=== PATIENT | male | born 1965 | race Caucasian/White ===

== ENCOUNTER 2023-11-10 12:11 | Emergency (ER) | payer BC, SELFPAY ==
[2023-11-10 12:12] VITALS: BP 182/95; PULSE 62; RESP 16; TEMP 36.8; O2SAT 97; BMI 29.0
--- NOTE | 2023-11-10 12:44 | HMH.EDGENADL ---
Discharge Plan Disposition Patient Disposition: Home, Self-Care Condition: Good Prescriptions Prescriptions: No Action glyburide-metformin 2.5-500 mg tablet 1 tab PO DAILY lisinopril 2.5 mg tablet 2.5 mg PO DAILY rosuvastatin 20 mg tablet 20 mg PO DAILY Referrals Follow up/Referrals: Ronnell Weinberg MD [Primary Care Provider] - See instructions Activity Restrictions/Add. Instructions Additional Instructions/Restrictions: See your primary care doctor to follow-up your blood sugar. Return to the emergency department for new or worsening pain in your groin redness worsening swelling nausea vomiting or inability to pass gas. Clinical Impressions Clinical Impression: Hyperglycemia Print Language Print Language: Turkish Discharge ED Provider: Taryn Carr General Adult HPI General Chief complaint: PAIN Stated complaint: possible kidney stone Time Seen by Provider: 11/10/23 13:22 History of Present Illness HPI narrative: Patient is a 58-year-old with past medical history significant for hypertension diabetes hyperlipidemia prior kidney stones presents to the emergency department with left lower back and flank pain that has been intermittent and worsening over the last few days. Patient did have diarrhea today no blood in stool no dysuria increased urinary frequency. Patient says that his pain feels similar to a prior kidney stone. Patient says sometimes it will be a 1 out of 10 symptoms a 4 out of 10 and then sometimes severe unable to allow him to sleep. Related Data Home Medications ?Medication ?Instructions ?Recorded ?Confirmed glyburide 2.5 mg-metformin 500 mg 1 tab PO DAILY 11/10/23 11/10/23 tablet lisinopril 2.5 mg tablet 2.5 mg PO DAILY 11/10/23 11/10/23 rosuvastatin 20 mg tablet 20 mg PO DAILY 11/10/23 11/10/23 Allergies Allergy/AdvReac Type Severity Reaction Status Date / Time No Known Allergies Allergy Verified 11/10/23 12:47 [facility] Disclaimer: The information contained in this section may have been updated after the patient was seen, as this information can be updated by other users. Social History Smoking Status: Never smoker alcohol intake: never current occupational status: retired Travel in the last 8 weeks: None ROS Obtained: Yes All systems reviewed & no additional complaints except as documented Physical Exam General General appearance: alert and in no apparent distress Eye Eye exam: Present PERRL and EOMI ENT ENT exam: Present normal exam Neck Neck exam: Present normal inspection and trachea midline Respiratory Respiratory exam: Present normal lung sounds bilaterally; Absent respiratory distress Cardiovascular Cardiovascular exam: Present regular rate and normal rhythm Abdominal Exam Abdominal exam: Present soft and tenderness (LLQ); Absent guarding or rebound exam: Present scrotal swelling and other (no palpable inguinal hernia mass) Neurological Exam Neurological exam: Present alert and oriented X3 Skin Skin exam: Present warm and dry Medical Decision Making Colby Inquiry Pt receiving controlled substance: No Vital Signs: 11/10/23 12:12 11/10/23 13:29 11/10/23 13:33 Temperature 98.2 F Temperature Source Oral Pulse Rate 71 82 Pulse Rate [Left Radial] 62 Respiratory Rate 16 Blood Pressure 172/98 H 171/143 H Blood Pressure [Right Arm] 182/95 H Blood Pressure Mean Blood Pressure Mean [Right Arm] 124 Blood Pressure Source Blood Pressure Position 02 Sat by Pulse Oximetry 97 96 95 Oxygen Delivery Method Room Air Room Air Room Air 11/10/23 14:00 11/10/23 14:30 11/10/23 15:10 Temperature 98.7 F Temperature Source Oral Pulse Rate 73 65 67 Pulse Rate [Left Radial] Respiratory Rate 20 Blood Pressure 165/90 H 156/95 H 156/95 H Blood Pressure [Right Arm] Blood Pressure Mean 115 Blood Pressure Mean [Right Arm] Blood Pressure Source Automatic Cuff Blood Pressure Position Sitting 02 Sat by Pulse Oximetry 97 97 Oxygen Delivery Method Room Air Room Air Lab Data Lab Results 11/10/23 12:32: WBC 7.0, RBC 5.59, Hgb 16.9, Hct 52.0, MCV 92.9, MCH 30.2, MCHC 32.6, RDW 13.6, Plt Count 223, MPV 8.0, Neut % (Auto) 63.6, Lymph % (Auto) 26.2, [place] % (Auto) 6.4, Eos % (Auto) 2.4, Baso % (Auto) 1.4, Neut # (Auto) 4.4, Lymph # (Auto) 1.8, [place] # (Auto) 0.5, Eos # (Auto) 0.2, Baso # (Auto) 0.1, Sodium 135 L, Potassium 4.6, Chloride 103, Carbon Dioxide 28, Anion Gap 8.6, BUN 10, Creatinine 0.70, Estimated Creat Clear 149, Estimated GFR 116, Est GFR ( Amer) 140, Glucose 343 H, Lactate 1.3, Calcium 8.9, Magnesium 1.9, Total Bilirubin 1.3, AST 33, ALT 29, Alkaline Phosphatase 56, Total Protein 6.8, Albumin 4.3, Globulin 2.5, Albumin/Globulin Ratio 1.7, Lipase 135 11/10/23 12:50: Urine Color Yellow, Urine Appearance Clear, Urine pH 6.0, Ur Specific [place] 1.010, Urine Protein Negative, Urine Glucose (UA) 3+, Urine Ketones Negative, Urine Blood Negative, Urine Nitrate Negative, Urine Bilirubin Negative, Urine Urobilinogen 0.2, Ur Leukocyte Esterase Negative, Urine RBC None, Urine WBC None 11/10/23 12:32 11/10/23 12:32 Orders (Tests/Meds): ED MEDICATIONS Discontinued Medications Generic Name Dose Route Start Last Admin Trade Name Freq PRN Reason Stop Dose Admin Iopamidol 75 ml 11/10/23 13:22 11/10/23 13:23 Iopamidol-370 (76%);100ml Bottle IV 11/10/23 13:23 75 ml ONCE ONE Administration Sodium Chloride 10 ml 11/10/23 13:22 11/10/23 13:23 Sodium Chloride 0.9% 10ml Syr (Rad Only) IV 12/10/23 13:21 10 ml NEEDED PRN Administration Maintain IV Site ORDERS Category Date Time Status CT abdomen pelvis w con Stat Cat Scan 11/10/23 12:56 Completed Complete Blood Count Auto Diff Stat Lab 11/10/23 12:32 Completed Comprehensive Metabolic Panel Stat Lab 11/10/23 12:32 Completed Lactic Acid Stat Lab 11/10/23 12:32 Completed Lipase Stat Lab 11/10/23 12:32 Completed Magnesium Stat Lab 11/10/23 12:32 Completed Urinalysis and Microscopic Stat Lab 11/10/23 12:50 Completed Medical Decision Narrative: Patient is a 58-year-old with past medical history significant for urolithiasis hypertension and diabetes presents to the emergency department with left lower quadrant pain. Differential diagnosis includes diverticulitis hernia, torsion enteritis pyelonephritis urinary tract infection urolithiasis. Upon presentation patient hemodynamically stable saturating appropriately on room air afebrile no acute distress. Patient currently rating pain 1 out of 10 and denies pain medication at this time. Laboratory workup significant for hyperglycemia normal lactate normal lipase UA with hyperglycemia without ketones. CT abdomen pelvis without stranding concerning for diverticulitis no urolithiasis or hydronephrosis incidental bilateral inguinal fat-containing hernias. On repeat evaluation patient remained stable. Able to tolerate p.o. informed patient of bilateral inguinal hernias that could be contributing to symptoms however no indication for acute intervention at this time. Also discussed hyperglycemia and how this can lead to increased urinary frequency and sometimes bladder irritation. Recommended follow-up with primary care provider to discuss management of diabetes. Patient amenable to discharge with outpatient follow-up with PCP. Critical Care Critical Care Time Critical Care Time: No
--- NOTE | 2023-11-10 12:48 | PC.NURSE ---
Dr. Carr at BS for pt eval
[2023-11-10 12:54] LABS: Microscopic, Urine URINE MICROSCOPIC (MICROSCOPIC)
[2023-11-10 12:55] LABS: Basophils # 0.1 K/mm3 (0-0.2); Basophils % 1.4 % (0.1-2.0); Eosinophils # 0.2 K/mm3 (0.0-0.4); Eosinophils % 2.4 % (0.1-12.0); Hemoglobin 16.9 g/dL (14.1-18.0); Lymphocytes # 1.8 K/mm3 (0.7-4.5); Lymphocytes % 26.2 % (10-50); Mean Corpuscular HGB Conc 32.6 g/dL (31.8-35.4); Mean Corpuscular Hemoglobin 30.2 pg (27.0-31.2); Mean Corpuscular Volume 92.9 fl (80-94); Monocytes # 0.5 K/mm3 (0.1-1.0); Monocytes % 6.4 % (1.7-9.3); Neutrophils # 4.4 K/mm3 (1.8-7.8); Neutrophils % 63.6 % (37.0-80.0); Platelet Count 223 K/mm3 (142-424); Red Blood Count 5.59 M/mm3 (4.60-6.20); Red Cell Distribution Width 13.6 % (11.5-17.5)
--- NOTE | 2023-11-10 12:56 | CT_ITS ---
FINAL REPORT TECHNIQUE: After the administration of intravenous contrast, axial images were obtained through the abdomen and pelvis by computed tomography. This study was performed with technique to keep radiation doses as low as reasonably achievable, (ALARA). Individualized dose reduction techniques using automated exposure control or adjustment of the MA and/or KV according to the patient's size were employed. CLINICAL HISTORY: left flank pain FINDINGS: Abdomen: The lung bases are clear. There are multiple low-attenuation areas in the right hepatic lobe some of which likely represent small cysts. Some, which are more linear, in the posterior right hepatic lobe could represent focal fat. If indicated this can be further evaluated with liver mass protocol MRI. The gallbladder is partially collapsed with mild wall thickening. The spleen is unremarkable. The adrenals are normal. The pancreas is unremarkable. The kidneys enhance appropriately. There is a 34 mm cyst in the left mid kidney and a less than 1 cm right renal cyst. No follow-up needed. These are likely benign. The aorta is normal in caliber. There is no free fluid or adenopathy. Pelvis: The appendix is normal. There are bilateral inguinal hernias containing fat. The urinary bladder is unremarkable. There is no free fluid or adenopathy. IMPRESSION: No acute process. Linear areas in the right hepatic lobe which could represent focal fat. If indicated this can be further evaluated with liver mass protocol MRI. Reviewed, Interpreted and Dictated by Yasmany Fernandez III, MD Transcribed by Niki Reyes Authenticated and [facility]
[2023-11-10 12:57] LABS: Appearance,Urine CLEAR (Clear); Bilirubin,Urine Negative (Negative); Blood, Urine Negative (Negative); Color,Urine YELLOW (Yellow); Glucose,Urine (UA) 3+ (Negative); Ketones,Urine Negative (Negative); Leukocyte Esterase,Urine Negative (Negative); Nitrate,Urine Negative (Negative); Protein,Urine Negative (Negative); Urobilinogen,Urine 0.2 EU/dl (0.2)
[2023-11-10 12:58] LABS: Albumin Level 4.3 g/dl (3.5-5.0); Chloride 103 mmol/L (98-107); Potassium 4.6 mmoL/L (3.5-5.1); Sodium 135 mmol/L (136-145)
[2023-11-10 13:00] LABS: Blood Urea Nitrogen 10 mg/dl (9-20); Creatinine Clearance Estimated 149 mL/min (50-200); Estimated Glomerular Filt Rate 116 ml/min (>60); GFR (African American) 140 ML/MIN (>60)
[2023-11-10 13:01] LABS: Alanine Aminotransferase 29 U/L (12-78); Albumin/Globulin Ratio 1.7 (1.1-1.8); Alkaline Phosphatase 56 U/L (38-126); Anion Gap 8.6 mEq/L (5-15); Aspartate Amino Transferase 33 U/L (17-59); Bilirubin,Total 1.3 mg/dl (0.2-1.3); Calcium 8.9 mg/dl (8.4-10.2); Carbon Dioxide 28 mmol/L (22.0-30.0); Globulin 2.5 g/dL (1.3-3.2); Glucose 343 mg/dl (74-100); Lipase 135 U/L (23-300); Magnesium 1.9 mg/dl (1.6-2.3); Total Protein,Serum 6.8 g/dl (6.3-8.2)
[2023-11-10 13:09] LABS: Lactic Acid 1.3 mmol/L (0.7-2.1)
[2023-11-10] MEDS: SODIUM CHLORIDE 0.9% 10ML SYR (RAD ONLY) 10 ML IV (13:23)
[2023-11-10] MEDS: IOPAMIDOL-370 (76%);100ML BOTTLE 75 ML IV (13:23)
[2023-11-10 13:29] VITALS: BP 172/98; PULSE 71; O2SAT 96
[2023-11-10 13:33] VITALS: BP 171/143; PULSE 82; O2SAT 95
[2023-11-10 14:00] VITALS: BP 165/90; PULSE 73; O2SAT 97
[2023-11-10 14:30] VITALS: BP 156/95; PULSE 65; O2SAT 97
--- NOTE | 2023-11-10 14:54 | PC.NURSE ---
Rounded on pt. No needs voiced at this time. Call light remains within reach.
[2023-11-10 15:10] VITALS: BP 156/95; PULSE 67; RESP 20; TEMP 37.1; O2SAT 97
== END 2023-11-10 15:13 | disposition home or self-care (01) ==
PROVIDERS: Emergency Provider Student in an Organized Health Care Education/Training Program; PCP Family Medicine
DX: E11.65 Type 2 diabetes mellitus with hyperglycemia (principal); R10.32 Left lower quadrant pain; M54.59 Other low back pain; K40.90 Unilateral inguinal hernia, without obstruction or gangrene, not specified as recurrent; Z87.442 Personal history of urinary calculi; Z79.84 Long term (current) use of oral hypoglycemic drugs
CPT/HCPCS: 74177; 80053; 81001; 83605; 83690; 83735; 85025; 99284; Q9967

== ENCOUNTER 2023-11-17 09:45 | Outpatient (CLI) | payer BC, SELFPAY ==
--- NOTE | 2023-11-17 09:50 | US_ITS ---
FINAL REPORT TECHNIQUE: Ultrasound images of the testicles were obtained bilaterally. Color Doppler images were obtained. CLINICAL HISTORY: TYPE 2 DIABETES MELLITUS W/O COMPLICATION COMPARISON: None FINDINGS: The testicles are normal in size and echotexture bilaterally. Arterial flow is identified bilaterally. Bilateral spermatoceles are identified, measuring 3.6 cm in greatest diameter on the right side, and 3.4 cm in greatest diameter on the left side. There are small hydroceles bilaterally. IMPRESSION: Bilateral spermatoceles as described above. Small bilateral hydroceles. Reviewed, Interpreted and Dictated by Melvin Drew MD Transcribed by Claudia Adams Authenticated and [facility]
== END 2023-11-17 23:59 | disposition home or self-care (01) ==
LOC: RAD 09:45
PROVIDERS: PCP Family Medicine; Visit Provider Family Medicine
DX: E11.9 Type 2 diabetes mellitus without complications (principal)
CPT/HCPCS: 76870

== ENCOUNTER 2024-10-17 20:03 | Observation (INO) | payer BC, SELFPAY ==
[2024-10-17] VITALS (9 sets, daily range): BP systolic 159–199; BP diastolic 87–105; PULSE 71–89; RESP 14–25; TEMP 36.6; O2SAT 95–98; BMI 31.0
--- NOTE | 2024-10-17 20:16 | ECG_ITS ---
APPROVED REPORT Exam: Resting ECG HR:68 bpm ECG Measurements Heart Rate 68 AXES GA 141 P 39 QRSd 94 QRS 6 QT 362 T 57 QTc 379 Conclusion SINUS RHYTHM INFERIOR MYOCARDIAL INFARCTION , PROBABLY OLD [40+ ms Q WAVE AND/OR ST/T ABNORMALITY IN II/aVF] ABNORMAL ECG Electronically signed by : JESSICA LAW, 10/24/2024 07:29:10
--- OUTSIDE RECORDS SUMMARY | 2024-10-17 20:16 | XMS_ITS | Data Portability ---
Author Organization [facility] Address [address] [place] [address] Assessment No assessment recorded. Plan of Treatment Reminders Order Date Submit Date Provider Last Modified By Organization Details Last Modified Time Details Appointments None record ed. Lab None record ed. Referral None record ed. Procedures None record ed. Surgeries None record ed. Imaging None record ed. Medication Orders None record ed. Patient TargetsNo targets recorded. Patient Instructions Encounter Date Encounter Id Patient Instructions Last Modified By Organization Details Last Modified Time 01/07/2024 [id number] Discussed his stone disease, he has done well with increased hydration alone which she will continue Discussed his spermatoceles at length. Would consider elective spermatocele ectomy over time only for significant symptoms or pain or considerable increase in size. I encouraged continued yearly PSA/CARMEN prostate cancer screening with Dr. Weinberg I will see him back as needed wilber Not available 01/07/2024 15:10:20 Reason for Referral None Reported. Problems Name Problem SNOMED Code Status Onset Date Resolution Date Notes Provider Name and Address Organization Details Recorded Time Spermatocele 11050164 Active 024 AMBROCIO REEVES MD [address] [place] [address], [id number], [facility] 4 15:09:18 Urolithiasis 49866296 Active 024 AMBROCIO REEVES MD [address] [place] [address], [id number], [facility] 4 15:09:25 Problem Notes None recorded. Medical Equipment None Reported. Allergies No known drug allergies Medications Not known to be on any medication Vitals Date Recorded Body height Body mass index (BMI) Body weight Provider Name and Address Organization Details Last Updated DateTime 01/07/2024 177.8 cm 29.4 kg/m2 99143.44 g Rossi Pires [facility] 01/07/2024 14:48:43 Social History Question Answer Notes LastModified by Organizat ion Details LastModified Time Tobacco Smoking Status Never Smoker Rossi Pires [facility] 01/07/2024 14:49:13 What Is Your Relationship Status? [email or web address] Information not available 01/07/2024 Sex: Unknown Functional Status Question Answer Note LastModified by Organization D etails LastModified Time What is your level of alcohol consumption? None arigg Information not available 01/07/2024 Mental Status None recorded. Family History Relationship Description Onset Age of this Age Resolved Age Notes LastModified by Organization Details LastModified Time Father Diabetes mellitus [facility] Not available 2023 14:49:04 Mother Diabetes mellitus [place] [id number] Not available 2023 14:49:04 Medical History Condition Response Diabetes Y Kidney Stones Y Hypertension Y Past Encounters Encounter ID Performer Location Encounter Start Date Encounter Closed Date Diagnosis/Indication Diagnosis SNOMED-CT Code Diagnosis ICD10 Code Diagnosis Note [id number] AMBROCIO REEVES MD UROLOGY [facility] [address] [place] [address] 01/07/2024 14:26:22 01/07/2024 16:04:12 Spermatocele 56090287 N43.42 Bilateral Urolithiasis 12145835 N2 0.9 History ofCT scan 10/21 revealed no stones Health Concerns Section Related Observation LastModified by Organization Detai ls LastModified Time None Recorded Concern Status LastModified by Organization Details LastModified Time None Recorded Advance Directives Directive None Recorded Payers Insurance Date Sequence Insurance Name Policy Number Policy Hughes Covered Member ID Hughes Member ID Guarantor Name 01/07/2024 1 BRETT: ANALISA RUSSE[place] OF [place] [id number] Javy Goel [id number] Javy Goel Notes Date Note Type Note Provider Name and Address Organization Details Recorded Time 01/07/2024 text/html 58 yo new male h ere today referred by Dr. Ronnell Weinberg for testicular swelling. The patient noticed an unusual area on self scrotal exam many months ago and ultimately sought evaluation. He has had no pain whatsoever. He notices a lump or swelling in the left hemiscrotum. Apparently a scrotal ultrasound was done and did not reveal a concerning finding per his report. He has no urinary complaints or concerns today. Additionally, I had seen him 15 years ago for stone disease and fortunately he has had no recurrence of stone over that time. And has adhered to previously recommended increased hydration. He did have an episode of left flank pain 3 months ago and was seen in ER where CT scan was done revealing no stone per his report. It was ultimately felt this was related to a musculoskeletal source. Full PMHx and ROS reviewed and attached - significant comorbid disease is noted. AMBROCIO REEVES MD [facility] [place], [phone], [facility] 01/07/2024 15:11:30
--- OUTSIDE RECORDS SUMMARY | 2024-10-17 20:16 | XMS_ITS | Clinical Summary ---
Author Organization [facility] Address [address] [place] [address] Care Team Providers Care Electronic Health Records Specialist Name Role Phone Ronnell Weinberg MD Primary Care Provider Allergies No known active allergies Medications omeprazole (priLOSEC) 20 MG capsule Take 20 mg by mouth Daily. 06/26/2021 Active rosuvastatin (CRESTOR) 20 MG tablet Take 20 mg by mouth Daily. 06/26/2021 Active aspirin 81 MG EC tablet Take 81 mg by mouth Daily. Active Vitamin E 180 MG (400 UNIT) capsule capsule Take by mouth Daily. Active Coenzyme Q10 (CO Q 10 PO) Take 200 mg by mouth Daily. Active Ascorbic Acid (VITAMIN C PO) Take 2,000 mg by mouth Daily. Active Cholecalciferol (Vitamin D3) 50 MCG (2000 UT) tablet Take by mouth Daily. Active glyBURIDE-metFO RMIN (GLUCOVANCE) 2.5-500 MG per tablet Take 2 tablets by mouth 2 (Two) Times a Day With Meals. 120 tablet 5 08/15/2021 Active Active Problems Problem Noted Date Diagnosed Date Type 2 diabetes mellitus wit h hyperglycemia, without long-term current use of insulin 08/15/2021 Overview (08/15/2021): Diagnosed in 2018 a1c >12 in 2021 Assessment & Plan (08/15/2021 9:03 AM EDT): Very hyperglycemic. Relatively few symptoms. At this point, he has been eating like he does not have diabetes and getting no exercise. I recommend: restricting daily carb intake to 180 grams and getting 150 minutes of exercise per week. I will increase his medication. We could add other meds in future if needed. Family History Medical History Relation Name Comments Diabetes Father larisa goel Cancer Maternal Grandfather alanna goel Diabetes Maternal Grandfather alanna goel Diabetes Mother chetan goel Diabetes Paternal Grandfather mr diamond Relation Name Status Comments Father larisa Maternal Grandfather alanna Mother chetan Paternal Grandfather Social History Tobacco Use Types Packs/Day Years Used Date Smoking Tobacco: Former Cigarettes 1 10.8 0 10/12/1978 - 08/12/1989 Smokeless Tobacco: Never Alcohol Use Standard Drinks/Week Comments Not Currently 0 (1 standard drink = 0.6 oz pur e alcohol) Abuse Screen Answer Date Recorded Unsafe at Home or Work/School Not on file Feels Threatened by Someone? Not on file Does Anyone Keep You from Co ntacting Others or Doint Things Outside the Home? Not on file 01/10/2023 Physical Sign of Abuse Present Not on file 1 Housing Stability Answer Date Recorded Current Living Arrangements Not on file 12/29 Potentially Unsafe Housing Conditions Not on jenny e 01/10/2023 Family and Community Support Answer Kolby e Recorded Help with Day-to-Day Activities Not on file 01/10/2023 Lonely or Isolated Not on file 01/10/2023 Employment Answer Date Recorded Do you want help finding or keeping work or a gopal b? Not on file 01/10/2023 Disabilities Answer Date Recorded Concentrating, Remembering, or Making Decisions Difficulty Not on file 01/10/2023 Doing Errands Independently Difficulty Not on fi le 01/10/2023 Education Answer Date Recorded Help with school or training? Not on file Preferred Language Not on file 01/10/2023 Sex and Gender Information Value Date Recorded Sex Assigned at Not on file Legal Sex Male 7:33 AM EST Gender Identity Not on file Sexual Orientation Not on file Last Filed Vital Signs Vital Sign Reading Time Taken Comments Blood Pressure 168/84 08/15/2021 8:00 AM EDT Pulse 63 08/15/2021 8:00 AM EDT Temperature - - Respiratory Rate - - Oxygen Saturation 98% 08/15/2021 8:00 AM EDT Inhaled Oxygen Concentration - - Weight 96.6 kg (213 lb) 08/15/2021 8:00 AM EDT Height 177.8 cm (5' 10 ) 08/15/2021 8:00 AM EDT Body Mass Index 30.56 08/15/2021 8:00 AM EDT Plan of Treatment Health Maintenance Due Date Last Done Comments Hepatitis B (1 of 3 - 19+ 3- dose series) 01/31/1984 Pneumococcal Vaccine 50+ (1 of 2 - PCV) 01/31/1984 TDAP/TD VACCINES (1 - Tdap) 01/31/1984 COLOGUARD 2010 COLON CANCER SCREENING 5 YEA R SIGMOIDOSCOPY 2010 COLONOSCOPY 2010 [address]AL CANCER SCREENING 2010 CT COLONOGRAPHY 2010 FECAL OCCULT BLOOD TEST 2010 FIT Testing (1 year) 2010 ZOSTER VACCINE (1 of 2) 2015 ANNUAL PHYSICAL 08/15/2021 HEPATITIS C SCREENING 08/15/2021 HEMOGLOBIN A1C 02/15/2022 08/15/2021 URINE MICROALBUMIN-CREATININ E RATIO (uACR) 05/09/2022 05/09/2021 DIABETIC EYE EXAM 07/11/2022 07/11/2021 (Ion terry-Reported (Performed Externally)) DIABETIC FOOT EXAM 08/15/2022 08/15/2021, 0 08/15/2021, 08/15/2021, Additional history exists COVID-19 Vaccine (1 - 2023-2 5 season) 2023 INFLUENZA VACCINE 12/29/2024 Procedures Procedure Name Priority Date/Time Associated Diagnosis Comments POCT GLYCOSYLATED HEMOGLOBIN (HGB A1C) Routine 08/15/2021 8:21 AM EDT Type 2 diabetes mellitus with hyperglycemia, without long-term current use of insulin from Last 3 Months or Most Recently Relevant to Health Maintenance Results * POC Glycosylated Hemoglobin (Hb A1C) (08/15/2021 8:21 AM EDT) Hemoglobin A1C 12.1 % [facility] Lot Number [id number] [facility] Expiration Date 05-04-2023 [facility] Blood 08/15/2021 8:21 AM EDT Paulo Gage MD POINT OF CARE TEST ORD ERABLES Final Result [facility]
[address] [place] [address], from Last 3 Months or Most Recently Relevant to Health Maintenance Insurance [facility] PPO Care Teams Electronic Health Records Specialist Relationship Specialty Start Date End Date Ronnell Weinberg MD [address] [place] [address] PCP - General Family Medicine 06/07/21
--- NOTE | 2024-10-17 20:24 | CT_ITS ---
PROCEDURE INFORMATION: Exam: CTA Head With Contrast, Arteriography Exam date and time: 10/17/2024 9:33 PM Age: 59 years old Clinical indication: Other: L arm numbness heavy gait when walk TECHNIQUE: Imaging protocol: Computed tomographic angiography of the head with contrast. Exam focused on the arteries. 3D rendering (Not supervised by radiologist): MIP and/or 3D reconstructed images were created by the technologist. Radiation optimization: All CT scans at this facility use at least one of these dose optimization techniques: automated exposure control; mA and/or kV adjustment per patient size (includes targeted exams where dose is matched to clinical indication); or iterative reconstruction. Contrast material: ISO 370; Contrast volume: 80 ml; Contrast route: INTRAVENOUS (IV); COMPARISON: CT HEAD/BRAIN WO CON 10/17/2024 9:31 PM FINDINGS: ANTERIOR CIRCULATION: Right internal carotid artery: Minimal atherosclerotic narrowing of the intracranial segment without flow-limiting stenosis. No aneurysm. Right middle cerebral artery: No occlusion or significant stenosis. No aneurysm. Right anterior cerebral artery: No occlusion or significant stenosis. No aneurysm. Left internal carotid artery: Minimal atherosclerotic narrowing of the intracranial segment without flow-limiting stenosis. No aneurysm. Left middle cerebral artery: No occlusion or significant stenosis. No aneurysm. Left anterior cerebral artery: No occlusion or significant stenosis. No aneurysm. POSTERIOR CIRCULATION: Right vertebral artery: Terminates as the PICA. No occlusion or significant stenosis. No aneurysm. Left vertebral artery: No occlusion or significant stenosis. No aneurysm. Basilar artery: No occlusion or significant stenosis. No aneurysm. Right posterior cerebral artery: Few focal areas P2a segment stenosis. No aneurysm. Left posterior cerebral artery: origin. No occlusion or significant stenosis. No aneurysm. Brain: No definite mass, mass effect, or midline shift. Cerebral ventricles: No ventriculomegaly. Bones/joints: Unremarkable. No acute fracture. Soft tissues: Unremarkable. IMPRESSION: No large vessel flow-limiting stenosis or occlusion. PROCEDURE INFORMATION: Exam: CTA Neck With Contrast Exam date and time: 10/17/2024 9:33 PM Age: 59 years old Clinical indication: Other: L arm numbness heavy gait when walk TECHNIQUE: Imaging protocol: Computed tomographic angiography of the neck with contrast. Exam focused on the cervical segments of the vasculature. 3D rendering (Not supervised by radiologist): MIP and/or 3D reconstructed images were created by the technologist. Radiation optimization: All CT scans at this facility use at least one of these dose optimization techniques: automated exposure control; mA and/or kV adjustment per patient size (includes targeted exams where dose is matched to clinical indication); or iterative reconstruction. Contrast material: ISO 370; Contrast volume: 80 ml; Contrast route: INTRAVENOUS (IV); COMPARISON: CT HEAD/BRAIN WO CON 10/17/2024 9:31 PM FINDINGS: Right common carotid artery: Minimal atherosclerosis of the carotid bulb without significant stenosis. No dissection or occlusion. Right internal carotid artery: Mild stenosis of the proximal cervical segment. Subtle beaded morphology of the mid to distal cervical segments. No dissection or occlusion. Right external carotid artery: No occlusion or stenosis of the origin. Left common carotid artery: Mild atherosclerotic narrowing of the carotid bulb without flow-limiting stenosis. No dissection or occlusion. Left internal carotid artery: Mild stenosis of the proximal cervical segment. Beaded morphology of the mid to distal cervical segments. No dissection or occlusion. Left external carotid artery: No occlusion or stenosis of the origin. Right vertebral artery: No stenosis. No dissection or occlusion. Left vertebral artery: Dominant vessel. No stenosis. No dissection or occlusion. Soft tissues: Unremarkable. Bones/joints: No acute fracture. Degenerative changes IMPRESSION: 1. Mild bilateral internal carotid artery proximal cervical segment stenosis. 2. Beaded morphology of the [id number]-right internal carotid artery mid to distal cervical segments, findings suggestive of fibromuscular dysplasia. REFERENCES: NASCET CRITERIA. The degree of stenosis in the cervical segment of the internal carotid artery is based on NASCET criteria. Normal is no stenosis. Mild is less than 50% stenosis. Moderate is 50-69% stenosis. Severe is 70% to 99% stenosis. Total occlusion is no detectable patent lumen.
--- NOTE | 2024-10-17 20:24 | CT_ITS ---
PROCEDURE INFORMATION: Exam: CT Head Without Contrast Exam date and time: 10/17/2024 9:31 PM Age: 59 years old Clinical indication: Other: L arm numbness heavy gait when walk TECHNIQUE: Imaging protocol: Computed tomography of the head without contrast. Radiation optimization: All CT scans at this facility use at least one of these dose optimization techniques: automated exposure control; mA and/or kV adjustment per patient size (includes targeted exams where dose is matched to clinical indication); or iterative reconstruction. COMPARISON: No relevant prior studies available. FINDINGS: Brain: Normal. No hemorrhage. Unremarkable white matter. No mass effect. Cerebral ventricles: No ventriculomegaly. Paranasal sinuses: Visualized sinuses are unremarkable. No fluid levels. Mastoid air cells: Visualized mastoid air cells are well aerated. Bones: Unremarkable. No acute fracture. Soft tissues: Unremarkable. IMPRESSION: No acute intracranial abnormality.
--- NOTE | 2024-10-17 20:26 | [facility].EDGENADL ---
Discharge Plan Disposition Patient Disposition: Admitted Prescriptions Prescriptions: No Action glyburide-metformin 2.5-500 mg tablet 1 tab PO DAILY lisinopril 2.5 mg tablet 2.5 mg PO DAILY rosuvastatin 20 mg tablet 20 mg PO DAILY Referrals Follow up/Referrals: Provider,Referral, MD [Primary Care Provider, Medical] - See instructions Clinical Impressions Clinical Impression: Ulnar neuropathy, Hyperglycemia, Abnormal computed tomography angiography (CTA) of neck Print Language Print Language: Hungarian Discharge ED Provider: Lew Jerry General Adult HPI General Chief complaint: Extremity Problem,Nontraumatic Stated complaint: left arm numb X5 days,heart skips beats,tired Time Seen by Provider: 10/17/24 20:12 Mode of Arrival: Family Vehicle Source of Information: Patient Description of Symptoms (Recalled from ER Triage Doc. by RN): L arm numbness and Heart Palpitations Pt presents to the ED with c/o [id number] L arm numbness X week. Pt rpeorts that the numbness started in his fingertips and now radiating to his upper L arm. Pt denies injury. Pt also c/o heart palpitations X weeks. Pt denies CP or SOA and reports sometimes I can just feel something in my chest . History of Present Illness HPI narrative: Patient is a 59-year-old male with past medical history of hypertension, relatively uncontrolled diabetes who presents to the emergency department for evaluation of arm tingling. Onset was acute, over the last week. It has been along the lateral aspect of his arm predominantly from the elbow down but sometimes up the lateral aspect of his arm to his shoulder. No reports of it going into his neck no acute vision changes. He feels overall weaker than normal with a heavy gait but no acute focal findings. No chest pain cough shortness of breath abdominal pain dysuria. No other acute complaints at this time. No trauma. Please note that above description of symptoms, in this electronic medical record under categorization of recalled from ER triage doctor by RN are reflective of an initial nursing assessment, however, is not reflective of my full history and physical exam that was personally taken and clarified. Consequentially, this preceding description of symptoms, which may include the patient's categorized chief complaint in the EMR, do not reflect my personal clinical impression, and the ultimate description of history of present illness and patient stated complaints should be deferred to this section of the note. Unless stated otherwise or congruent with this section of the note, additional signs, symptoms, or incongruence should be interpreted as inaccurate with my clinical impression. Related Data Home Medications ?Medication ?Instructions ?Recorded ?Confirmed glyburide 2.5 mg-metformin 500 mg 1 tab PO DAILY 11/10/23 11/10/23 tablet lisinopril 2.5 mg tablet 2.5 mg PO DAILY 11/10/23 11/10/23 rosuvastatin 20 mg tablet 20 mg PO DAILY 11/10/23 11/10/23 Allergies Allergy/AdvReac Type Severity Reaction Status Date / Time No Known Allergies Allergy Verified 10/17/24 20:25 [facility] Disclaimer: The information contained in this section may have been updated after the patient was seen, as this information can be updated by other users. Medical History (Updated 10/17/24 @ 23:08 by Lew Jerry MD) Diabetes Hyperlipidemia Hypertension Social History (Updated 11/10/23 @ 16:06 by Taryn Carr MD) Smoking Status: Never smoker alcohol intake: never current occupational status: retired Travel in the last 8 weeks?: None Have you lived/traveled outside [place] in past 30 days?: No Contact w/someone who lives/traveled outside [place] past 30 days?: No Exposure to someone with infectious disease in past 14 days?: No Do you have a fever (greater than 100.4 F or 38 C)?: No Have you tested positive for COVID-19?: No Exposed to someone with COVID-19 in past 14 days?: No Do you have a sore throat?: No Do you have a cough?: No Do you have any weakness?: No Do you have any diarrhea?: No Are you experiencing any unusual bleeding?: No Do you have any muscle aches/pain?: No Do you have any abdominal pain?: No Are you experiencing loss of taste or smell?: No ROS Obtained: Yes Systems reviewed as appropriate & no additional complaints except as documented Physical Exam General General appearance: alert and in no apparent distress Head Head exam: atraumatic and normocephalic Eye Eye exam: Present PERRL and EOMI ENT ENT exam: Present mucous membranes moist Neck Neck exam: Present normal inspection Chest Chest inspection: Present normal inspection and symmetric chest wall rise Respiratory Respiratory exam: Present normal lung sounds bilaterally; Absent respiratory distress Cardiovascular Cardiovascular exam: Present regular rate and normal rhythm Abdominal Exam Abdominal exam: Present soft; Absent tenderness Extremities Exam Extremities exam: Present normal inspection Neurological Exam Neurological exam: Present alert, oriented X3, CN II-XII intact and other (5 out of 5 strength bilateral upper and lower extremities. Bounding left radial pulse. Decreased sensation in ulnar nerve distribution from the elbow down. No color change in the extremities compared to each other. [employer] strength intact) Psychiatric Psychiatric exam: Present normal affect Skin Skin exam: Present warm and dry Medical Decision Making Medical Records Screening: Per USPSTF and CDC recommendations, given the prevalence of disease in our region, it is our hospital?s policy to screen for HIV and viral Hepatitis for all patients aged 18 and over and those with ongoing risk factors. [place] Inquiry Pt receiving controlled substance: No Vital Signs: 10/17/24 20:18 10/17/24 22:00 Temperature 97.8 F Temperature Source Oral Pulse Rate 89 Pulse Rate [Right] 89 Respiratory Rate 14 25 H Blood Pressure 167/87 H Blood Pressure [Right Arm] 199/105 H Blood Pressure Mean 123 Blood Pressure Mean [Right Arm] 136 Blood Pressure Source [Right Arm] Automatic Cuff Blood Pressure Position [Right Arm] Sitting 02 Sat by Pulse Oximetry 98 95 Oxygen Delivery Method Room Air Lab Data Lab Results 10/17/24 20:24: VBG pH 7.40, VBG pCO2 43.0, VBG pO2 63.8 H, VBG HCO3 26.3, VBG Total CO2 27.6 H, VBG O2 Saturation 92.4 H, VBG Base Excess 1.5, VBG Lactic Acid 2.0 10/17/24 20:29: WBC 6.9, RBC 5.68, Hgb 16.5, Hct 46.8, MCV 82.4, MCH 29.0, MCHC 35.3, RDW 11.9, Plt Count 250, MPV 9.6, Neut % (Auto) 60.1, Lymph % (Auto) 30.3, [place] % (Auto) 7.2, Eos % (Auto) 1.4, Baso % (Auto) 0.9, Neut # (Auto) 4.1, Lymph # (Auto) 2.1, [place] # (Auto) 0.5, Eos # (Auto) 0.1, Baso # (Auto) 0.1, Sodium 130 L, Potassium 4.0, Chloride 95 L, Carbon Dioxide 28, Anion Gap 11.0, BUN 12, Creatinine 0.60 L, Estimated Creat Clear 179, Estimated GFR 138, Est GFR ( Amer) 167, Glucose 660 H*, Calcium 9.8, Magnesium 1.9, Total Bilirubin 1.1, AST 29, ALT 26, Alkaline Phosphatase 83, Total Protein 6.5, Albumin 4.3, Globulin 2.2, Albumin/Globulin Ratio 2.0 H 10/17/24 20:29 10/17/24 20:29 Orders (Tests/Meds): ED MEDICATIONS Discontinued Medications Generic Name Dose Route Start Last Admin Trade Name Freq PRN Reason Stop Dose Admin Lactated Ringer's 1,000 mls @ 999 mls/hr 10/17/24 21:24 10/17/24 21:58 Lactated Ringer's 1000 Ml Bag IV 10/17/24 22:24 999 mls/hr .Q1H1M ONE Administration Iopamidol 80 ml 10/17/24 21:07 10/17/24 21:08 Iopamidol-370 (76%);100ml Bottle IV 10/17/24 21:08 80 ml ONCE ONE Administration Sodium Chloride 10 ml 10/17/24 21:07 10/17/24 21:08 Sodium Chloride 0.9% 10ml Syr (Rad Only) IV 10/17/24 21:08 10 ml ONCE ONE Administration Sodium Chloride 50 ml 10/17/24 21:07 10/17/24 21:08 0.9 % Sodium Chloride 50 Ml Vial IV 10/17/24 21:08 50 ml ONCE ONE Administration ORDERS Category Date Time Status CT angio head Stat Cat Scan 10/17/24 20:[address] angio neck Stat Cat Scan 10/17/24 20:[address] head/brain wo con Stat Cat Scan 10/17/24 20:24 Completed CBC w/Auto Diff [Complete Blood Count Auto Diff] Stat Lab 10/17/24 20:29 Completed CMP [Comprehensive Metabolic Panel] Stat Lab 10/17/24 20:29 Completed HIV Combo Stat Lab 10/17/24 20:29 Received Hepatitis C Ab Qual. W/ RFX Stat Lab 10/17/24 20:29 Received MG [Magnesium] Stat Lab 10/17/24 20:29 Completed VBG [Venous Blood Gas] Stat RT 10/17/24 20:24 Completed ECG Data Tracing #1: Dependently interpreted by me rate 68, rhythm is regular, axis is normal, no ST elevation in anatomical contiguous leads, QTc 379. Medical Decision Narrative: In summary patient is a 59-year-old male with past medical history described above presents emergency department for evaluation of global weakness and sensory changes in his left arm. Patient is hemodynamically stable nontoxic-appearing upon arrival, afebrile. No asymmetric swelling of his arm to suggest DVT, bounding pulse no concern for arterial pathology. He does have neuropathy in her ulnar nerve distribution which occasionally goes up higher to his shoulder which may be some form of brachial plexopathy. Given history of reported heavy gait CUT OFF SAW TENDER METAL pathology that is critical will be ruled out with noncontrasted CT scan of the head and CTA of the head and neck as a large stroke or mass would be evident after [address] imaging. Screening for DKA will also be conducted. Initial workup reviewed by me no significant leukocytosis, no anemia, compensated acid-base status, hyponatremia but hyperglycemia without evidence of DKA glucose is 660 no elevated anion gap. Given this corrected sodium is normal. Will give a liter of Ringer's and 5 units of insulin. Neck CTA incidental beaded morphology of carotid arteries suggestive of fibromuscular dysplasia, no acute intracranial abnormality. The case discussed with hospital medicine regarding management they will admit the patient to her service for continued evaluation at this time. Critical Care Critical Care Time Critical Care Time: No
[2024-10-17 20:39] LABS: Lactate Venous 2.0 mmol/L (0.4-2.0); VBG HCO3 26.3 mmol/L (23-30); VBG PCO2 43.0 mmol/L (35-51); VBG PH 7.40 mmol/L (7.31-7.41); VBG PO2 63.8 mmol/L (28-40)
[2024-10-17 21:03] LABS: Anion Gap 11.0 mEq/L (5-15); Blood Urea Nitrogen 12 mg/dl (9-20); Carbon Dioxide 28 mmol/L (22.0-30.0); Chloride 95 mmol/L (98-107); Potassium 4.0 mmoL/L (3.5-5.1); Sodium 130 mmol/L (136-145)
[2024-10-17 21:04] LABS: Alanine Aminotransferase 26 U/L (12-78); Albumin Level 4.3 g/dl (3.5-5.0); Albumin/Globulin Ratio 2.0 (1.1-1.8); Alkaline Phosphatase 83 U/L (38-126); Aspartate Amino Transferase 29 U/L (17-59); Bilirubin,Total 1.1 mg/dl (0.2-1.3); Calcium 9.8 mg/dl (8.4-10.2); Creatinine Clearance Estimated 179 mL/min (50-200); Creatinine,Serum 0.60 mg/dl (0.66-1.25); Estimated Glomerular Filt Rate 138 ml/min (>60); GFR (African American) 167 ML/MIN (>60); Globulin 2.2 g/dL (1.3-3.2); Magnesium 1.9 mg/dl (1.6-2.3); Total Protein,Serum 6.5 g/dl (6.3-8.2)
[2024-10-17 21:06] LABS: Hemoglobin 16.5 g/dL (14.1-18.0); Red Blood Count 5.68 M/mm3 (4.60-6.20); White Blood Count 6.9 K/mm3 (4.8-10.8)
[2024-10-17 21:07] LABS: Hematocrit 46.8 % (42.0-52.0); Immature Granulocytes % 0.1 %; Mean Corpuscular HGB Conc 35.3 g/dL (31.8-35.4); Mean Corpuscular Hemoglobin 29.0 pg (27.0-31.2); Mean Corpuscular Volume 82.4 fl (80-94); Nucleated Red Blood Cells % 0 %; Platelet Count 250 K/mm3 (142-424); Red Cell Distribution Width-SD 35.7 fL
[2024-10-17] MEDS: 0.9 % SODIUM CHLORIDE 50 ML VIAL IV (21:08)
[2024-10-17] MEDS: IOPAMIDOL-370 (76%);100ML BOTTLE 80 ML IV (21:08)
[2024-10-17] MEDS: SODIUM CHLORIDE 0.9% 10ML SYR (RAD ONLY) 10 ML IV (21:08)
[2024-10-17 21:22] LABS: Glucose 660 mg/dl (74-100)
[2024-10-17] MEDS: LACTATED RINGERS 1000ML 1,000 ML 999 ML IV (21:58)
[2024-10-17] MEDS: INSULIN HUMAN REGULAR 100 UNITS/ML 10ML VIAL 5 UNIT IVP (23:18)
[2024-10-18 00:03] LABS: Hepatitis C Ab Qual. W/ RFX NEGATIVE (Negative)
[2024-10-18 00:18] VITALS: BP 160/84; PULSE 90; RESP 16; TEMP 36.9; O2SAT 97; BMI 28.9
--- NOTE | 2024-10-18 00:34 | P.HP_ITS ---
<Statement entered by Puneet Mcdaniel MD - 10/19/24 12:08> Personally evaluated patient and agree with plan of care as outlined by the COST ESTIMATING MANAGER. History of Present Illness *Admission Date: 10/18/24 *Reason for visit:: Left arm numbness and uncontrolled diabetes mellitus *History of present illness: This 59-year-old male male he came in tonight because of his left arm numbness, he was seen by the ER doctor for this and felt it is probably ulnar nerve syndrome. At this actually can be taken care of as an outpatient. Incidentally found that his blood sugars were greater than 600. Talked with the patient that he had lost his primary care provider who retired last fall., That he had not been checking his blood sugars for several months, he had had it once in the past greater than 500. He has no other complaints of illness or physical problem. Labs do not indicate any DKA.. Initial impression is insulin insufficiency. Plan at this time slowly bring his blood sugar down to normal., After talking with the ER doctor do believe that we need to place him in the ER since he does not have a primary care provider, once we stabilize his blood sugar can then write him for medication for outpatient have case management give with him to set him up to have a primary care provider follow-up as soon as possible. Teaching also done in the ER about diabetes pancreatic poop out , insulin insufficiency. Also went over the risk of uncontrolled diabetes, including heart disease stroke need for yearly difficult exams. Patient is stable at this time hopefully we will be able to get his blood sugar normal make sure that there is no other indications. Set him up for outpatient primary care provider that can manage his blood sugars and refer him to endocrinology.. At that point in time then they can evaluate his left arm numbness and possibly have a nerve conduction study to find out location if this is truly an ulnar nerve impingement. That issue at this time is not emergent. Also noting that the patient's blood pressure were elevated here we will continue to evaluate that. Limited old records to review. [facility] Disclaimer: The information contained in this section may have been updated after the patient was seen, as this information can be updated by other users. Medical History (Updated 10/18/24 @ 00:59 by Zulema Edmond RN) Colonoscopy planned Hiatal hernia Dilation of esophagus Uncontrolled diabetes mellitus Diabetes Hyperlipidemia Hypertension Social History (Updated 11/10/23 @ 16:06 by Taryn Carr MD) Smoking Status: Never smoker alcohol intake: never current occupational status: retired Travel in the last 8 weeks?: None Other Medical History Have you received the Flu Vaccine for this season: No Have you received the Pneumonia Vaccine: No Review of Systems Review of Systems Review of systems:: pertinent systems reviewed and negative unless documented below Constitutional Constitutional: Reports as per HPI, Reports fatigue and Reports weakness Eyes Eyes: Reports as per HPI ENT Ears, Nose, Mouth, and Throat: Reports as per HPI *Cardiovascular Cardiovascular: Reports as per HPI *Respiratory Respiratory: Reports as per HPI *Gastrointestinal Gastrointestinal: Reports as per HPI *Genitourinary Genitourinary: Reports as per HPI *Musculoskeletal Musculoskeletal: Reports as per HPI and Reports tingling (Left arm ulnar side) Integumentary/Breasts Skin/Breast: Reports as per HPI *Neurologic Neurologic: Reports as per HPI, Reports tingling (Left arm ulnar side) and Reports weakness Psychiatric Psychiatric: Reports as per HPI Endocrine Endocrine: Reports as per HPI and Reports fatigue Hematologic/Lymphatic Hematologic/Lymphatic: Reports as per HPI Allergic/Immunologic Allergic/Immunologic: Reports as per HPI Meds Home Medications and Allergies Home Medications ?Medication ?Instructions ?Recorded ?Confirmed ?Type glyburide 2.5 mg-metformin 500 mg 1 tab PO DAILY 11/0910/18/24 History tablet lisinopril 2.5 mg tablet 2.5 mg PO DAILY 11/10/23 History rosuvastatin 20 mg tablet 20 mg PO DAILY 11/10/2309/29 History aspirin 81 mg capsule 81 mg PO DAILY 10/18/2409/29 History New Prescriptions to Start Prescriptions: Allergies Allergy/AdvReac Type Severity Reaction Status Date / Time No Known Allergies Allergy Verified 10/17/24 20:25 Exam Data for Last 24 hours Vital signs and Labs for Last 24 Hours: Temp Pulse Resp BP Pulse Ox O2 Del Method 98.5 F 90 16 160/84 H 97 Room Air 10/18/24 00:18 10/18/24 00:18 10/18/24 00:18 10/18/24 00:18 10/18/24 00:18 10/18/24 00:18 Laboratory Results - last 24 hr 10/17/24 20:24: VBG pH 7.40, VBG pCO2 43.0, VBG pO2 63.8 H, VBG HCO3 26.3, VBG Total CO2 27.6 H, VBG O2 Saturation 92.4 H, VBG Base Excess 1.5, VBG Lactic Acid 2.0 10/17/24 20:29: WBC 6.9, RBC 5.68, Hgb 16.5, Hct 46.8, MCV 82.4, MCH 29.0, MCHC 35.3, RDW 11.9, Plt Count 250, MPV 9.6, Neut % (Auto) 60.1, Lymph % (Auto) 30.3, [place] % (Auto) 7.2, Eos % (Auto) 1.4, Baso % (Auto) 0.9, Neut # (Auto) 4.1, Lymph # (Auto) 2.1, [place] # (Auto) 0.5, Eos # (Auto) 0.1, Baso # (Auto) 0.1, Sodium 130 L, Potassium 4.0, Chloride 95 L, Carbon Dioxide 28, Anion Gap 11.0, BUN 12, Creatinine 0.60 L, Estimated Creat Clear 179, Estimated GFR 138, Est GFR ( Amer) 167, Glucose 660 H*, Calcium 9.8, Magnesium 1.9, Total Bilirubin 1.1, AST 29, ALT 26, Alkaline Phosphatase 83, Total Protein 6.5, Albumin 4.3, Globulin 2.2, Albumin/Globulin Ratio 2.0 H, HCV Ab DEANDRE w/Rflx PCR Qn Negative, HIV Ag/Ab Combo Qual Negative I & O for Last 24 hours: Intake & Output 10/15/24 10/16/24 10/17/24 10/18/24 05:59 05:59 05:59 05:59 Weight 195 lb 8 oz Radiology Reports for the Last 24 Hours: Mild bilateral internal carotid artery proximal cervical segment stenosis. 2. Beaded morphology of the yvjx-ldbbatk-gfuk-right internal carotid artery mid to distal cervical segments, findings suggestive of fibromuscular dysplasia. Constitutional Constitutional: no acute distress, obese and cooperative *Routine HEENT Exam Head: Present normocephalic and atraumatic Eye: Present EOMI and PERRL ENT: Present mucous membranes moist and oropharynx clear *Routine Neck Exam Neck: Present supple and full ROM Comments: No tenderness on movement *Routine Respiratory Exam Respiratory: Present CTA bilaterally, normal respiratory effort, able to speak in complete sentences and symmetric chest movement *Routine Cardiovascular Exam Cardiovascular: Present RRR, Normal S1 and Normal S2 *Routine Abdominal Exam Abdominal: Present soft and normoactive bowel sounds Comments: Nontender abdomen no signs of any organ enlargement *Routine Rectal Exam Rectal:: deferred *Routine Genitalia Exam Genitalia:: deferred *Routine Extremities Exam Extremities: Present full ROM, pulses intact and normal capillary refill Comments: Examination upper extremities finds no deficit patient still noting that there is some numbness at the elbow sometimes running up to the neck *Routine Skin Exam Skin: Present intact, dry and warm *Routine Neurological Exam Neurological: Present alert, oriented X3, CN II-XII intact, vision grossly intact, hearing grossly intact and normal speech Comments: No signs of decree sensation in lower extremities,, examination the upper extremities no loss of strength good range of motion good proprioception Routine Psychiatric Exam Psychiatric: Present normal affect, normal thought process and cooperative Comments: Patient is intelligent but had decided not to care for his diabetes, not having primary care provider did not take the time to find one. Has been many months since he has seen a physician in an office H&P: Result Impressions 1. Very poorly controlled diabetes mellitus type 2 now probably requiring insulin 2. Ulnar syndrome symptoms to left arm 3. Hypertension Imaging and Cardiology CT scan - head: Status: image reviewed by me Additional comments: Mild bilateral internal carotid artery proximal cervical segment stenosis. 2. Beaded morphology of the zpfe-vebhkzg-tdnj-right internal carotid artery mid to distal cervical segments, findings suggestive of fibromuscular dysplasia. Assessment and Plan *Assessment and plan (1) Uncontrolled diabetes mellitus: Status: Acute Qualifiers: Diabetes mellitus type: type 2 Glycemic state: with hyperglycemia Qualified Code(s): E11.65 - Type 2 diabetes mellitus with hyperglycemia Category: Medical (2) Hyperglycemia: Status: Acute Category: Medical Code(s): R73.9 - Hyperglycemia, unspecified (3) Abnormal computed tomography angiography (CTA) of neck: Status: Acute Category: Medical Code(s): R93.89 - Abnormal findings on diagnostic imaging of other specified body structures (4) Ulnar neuropathy: Status: Acute Qualifiers: Laterality: left Qualified Code(s): G56.22 - Lesion of ulnar nerve, left upper limb Category: Medical Code(s): G56.20 - Lesion of ulnar nerve, unspecified upper limb Plan 1. Due to the patient's uncontrolled diabetes blood sugars being greater than 600., I do feel that the patient needs to be admitted to the floor to slowly bring his blood sugars back down to an acceptable level. Then to adjust medications to be able to get him prescription that he will have them until he can see a primary care provider. I also have put in an order for case management be able to help him with this. 2. Patient in need of diabetic teaching possibly a continuous diabetic monitor to be placed in the upper arm. 3. As outpatient to the ulnar syndrome of numbness to the left elbow sometimes running up to the neck can be evaluated as an outpatient
[2024-10-18] MEDS: humaLOG 100 UNITS/ML 10ML VIAL (SSI) SUBCUT ×3 (00:35→11:30)
[2024-10-18 00:52] VITALS: RESP 16; O2SAT 97
[2024-10-18 00:54] LABS: POC Glucose,Bedside 402 (70-110)
--- NOTE | 2024-10-18 01:08 | PC.NURSE ---
pt arrived on floor via wheelchair at 0015
--- NOTE | 2024-10-18 01:23 | PC.NURSE ---
Pt was admitted to Med/surg floor from the ED. Pt. came into the ED with c/o numbness to the left hand/arm. Pt. c/o numbness for 5-6 days left hand ring and baby finger that radiates up to elbow and intermittent to the shoulder. 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 states it is normal now. Pt. has full ROM to left hand and arm. Pt. also diabetic and does not monitor sugars at home. Blood sugar was 660 in the ED. Pt. got 5 units of insulin IV. upon arrival to floor. blood sugar was 402. 20 units of Insulin given per sliding scale on the . Pt. resting comfortable in the bed. no needs at this time.
[2024-10-18 04:00] VITALS: BP 139/79; PULSE 60; RESP 18; TEMP 36.7; O2SAT 94; BMI 28.9
[2024-10-18 06:40] LABS: POC Glucose,Bedside 174 (70-110)
[2024-10-18 07:21] LABS: White Blood Count 8.0 K/mm3 (4.8-10.8)
[2024-10-18 07:22] LABS: Hematocrit 43.6 % (42.0-52.0); Hemoglobin 15.1 g/dL (14.1-18.0); Red Blood Count 5.22 M/mm3 (4.60-6.20)
[2024-10-18 07:23] LABS: Mean Corpuscular HGB Conc 34.6 g/dL (31.8-35.4); Mean Corpuscular Hemoglobin 28.9 pg (27.0-31.2); Mean Corpuscular Volume 83.5 fl (80-94); Platelet Count 227 K/mm3 (142-424); Potassium 3.5 mmoL/L (3.5-5.1); Red Cell Distribution Width-SD 36.1 fL; Sodium 137 mmol/L (136-145)
[2024-10-18 07:24] LABS: Anion Gap 8.5 mEq/L (5-15); Aspartate Amino Transferase 22 U/L (17-59); Bilirubin,Total 1.1 mg/dl (0.2-1.3); Blood Urea Nitrogen 11 mg/dl (9-20); Calcium 9.0 mg/dl (8.4-10.2); Carbon Dioxide 30 mmol/L (22.0-30.0); Chloride 102 mmol/L (98-107); Creatinine Clearance Estimated 143 mL/min (50-200); Creatinine,Serum 0.70 mg/dl (0.66-1.25); Estimated Glomerular Filt Rate 115 ml/min (>60); GFR (African American) 140 ML/MIN (>60); Glucose 180 mg/dl (74-100); Immature Granulocytes % 0.9 %; Magnesium 1.8 mg/dl (1.6-2.3); Nucleated Red Blood Cells % 0 %
[2024-10-18 07:25] LABS: Alanine Aminotransferase 21 U/L (12-78); Albumin Level 3.6 g/dl (3.5-5.0); Albumin/Globulin Ratio 1.7 (1.1-1.8); Alkaline Phosphatase 83 U/L (38-126); Globulin 2.1 g/dL (1.3-3.2); Total Protein,Serum 5.7 g/dl (6.3-8.2)
--- NOTE | 2024-10-18 07:33 | PC.NURSE ---
Pt. is alert and orientated x 4. Pt. is on room air. Pt. was admitted overnight with high blood sugars and nueropathy pain to left hand/arm. Pt. feeling better this am. Pt. slept well overnight. Blood sugars trending down. Personal items and call hart in reach.
--- NOTE | 2024-10-18 07:54 | HMH.PHAINT1 ---
Pharmacy Intervention Comments: HOME MEDICATION LIST VERIFIED USING LIST FROM OUTPATIENT PHARMACY AND PT INTERVIEW
[2024-10-18 08:00] VITALS: BP 163/88; PULSE 67; RESP 18; TEMP 36.8; O2SAT 96
[2024-10-18] MEDS: LISINOPRIL 2.5MG TABLET 2.5 MG PO (09:08)
[2024-10-18] MEDS: ASPIRIN EC 81MG TABLET 81 MG PO (09:08)
[2024-10-18] MEDS: POTASSIUM CHLORIDE 20MEQ TAB 40 MEQ PO (10:32)
--- NOTE | 2024-10-18 10:48 | EXP.DC.SUM ---
General Admission date:: 10/17/24 Discharge date: 10/18/24 HPI HPI HPI: This 59-year-old male male he came in tonight because of his left arm numbness, he was seen by the ER doctor for this and felt it is probably ulnar nerve syndrome. At this actually can be taken care of as an outpatient. Incidentally found that his blood sugars were greater than 600. Talked with the patient that he had lost his primary care provider who retired last fall., That he had not been checking his blood sugars for several months, he had had it once in the past greater than 500. He has no other complaints of illness or physical problem. Labs do not indicate any DKA.. Initial impression is insulin insufficiency. Plan at this time slowly bring his blood sugar down to normal., After talking with the ER doctor do believe that we need to place him in the ER since he does not have a primary care provider, once we stabilize his blood sugar can then write him for medication for outpatient have case management give with him to set him up to have a primary care provider follow-up as soon as possible. Teaching also done in the ER about diabetes pancreatic poop out , insulin insufficiency. Also went over the risk of uncontrolled diabetes, including heart disease stroke need for yearly difficult exams. Patient is stable at this time hopefully we will be able to get his blood sugar normal make sure that there is no other indications. Set him up for outpatient primary care provider that can manage his blood sugars and refer him to endocrinology.. At that point in time then they can evaluate his left arm numbness and possibly have a nerve conduction study to find out location if this is truly an ulnar nerve impingement. That issue at this time is not emergent. Also noting that the patient's blood pressure were elevated here we will continue to evaluate that. Limited old records to review. Hospital Course Hospital Course Hospital Course: Mr. Goel is a 59-year-old male who presented yesterday to the emergency department with complaints of tingling and numbness down his left arm and into his pinky and ring finger. During his workup he was found to have elevated glucose at 660. Patient's gap was closed and no acidosis noted. Patient was subsequently admitted to the hospital for management of hyperglycemia. #Hyperglycemia #Uncontrolled diabetes melitis, type II #Elevated A1c ? Patient initial blood glucose was 660, patient was given regular insulin and subsequently decreased blood sugars. Patient glucose this morning 180. Discussed with patient in depth about his type 2 diabetes, he states he has been diabetic for approximately 5 years, he does take glyburide?metformin 1 tab twice daily. He states he does not check his sugar on a regular basis and that he does not control his diet. ?A1c was greater than 14%. Unknown previous A1c as his PCP is not within our facility. Patient does state that his PCP is only seeing the geriatric population and so he is no longer seeing him. Set up an appointment with Dr. Barr, at [facility], at discharge for Friday for further management and monitoring of diabetes. ? Patient to stop glimepiride?metformin 1 tab twice daily, start Farxiga 10 mg daily, metformin 1000 twice daily, and Lantus Solostar 20 units at night. Also discharging home with glucometer and supplies, instructed patient to check his sugars at least once daily in the morning. #Abnormal computed tomography of neck #Fibromuscular dysplasia ?Patient had CTA shows fibromuscular dysplasia of the carotid arteries. Patient to follow-up with PCP regarding these findings. #Hypertension ?Patient hypertensive during visit, states that he takes lisinopril 2.5 mg daily and aspirin 81 mg daily. He states his blood pressure normally runs normal. Patient should continue to monitor at home, follow-up with PCP for hypertensive medication adjustments if needed. #Hyperlipidemia ? Patient takes rosuvastatin 20 mg daily. Continue medication. #Ulnar neuropathy ?Patient initial complaint for tingling and numbness in his left arm and fingers has resolved. Did discuss with patient if it is recurrent, to seek a outpatient orthopedic practice for possible further workup. Total time spent on discharge 39 minutes in counseling, documentation, chart review, and direct care with patient. Exam Data for Last 24 hours Vital signs and Labs for Last 24 Hours: Temp Pulse Resp BP Pulse Ox O2 Del Method 98.2 F 67 18 163/88 H 96 Room Air 10/18/24 08:00 10/18/24 08:00 10/18/24 08:00 10/18/24 08:00 10/18/24 08:00 10/18/24 09:00 Laboratory Results - last 24 hr 10/17/24 20:24: VBG pH 7.40, VBG pCO2 43.0, VBG pO2 63.8 H, VBG HCO3 26.3, VBG Total CO2 27.6 H, VBG O2 Saturation 92.4 H, VBG Base Excess 1.5, VBG Lactic Acid 2.0 10/17/24 20:29: WBC 6.9, RBC 5.68, Hgb 16.5, Hct 46.8, MCV 82.4, MCH 29.0, MCHC 35.3, RDW 11.9, Plt Count 250, MPV 9.6, Neut % (Auto) 60.1, Lymph % (Auto) 30.3, [place] % (Auto) 7.2, Eos % (Auto) 1.4, Baso % (Auto) 0.9, Neut # (Auto) 4.1, Lymph # (Auto) 2.1, [place] # (Auto) 0.5, Eos # (Auto) 0.1, Baso # (Auto) 0.1, Sodium 130 L, Potassium 4.0, Chloride 95 L, Carbon Dioxide 28, Anion Gap 11.0, BUN 12, Creatinine 0.60 L, Estimated Creat Clear 179, Estimated GFR 138, Est GFR ( Amer) 167, Glucose 660 H*, Calcium 9.8, Magnesium 1.9, Total Bilirubin 1.1, AST 29, ALT 26, Alkaline Phosphatase 83, Total Protein 6.5, Albumin 4.3, Globulin 2.2, Albumin/Globulin Ratio 2.0 H, HCV Ab DEANDRE w/Rflx PCR Qn Negative, HIV Ag/Ab Combo Qual Negative 10/18/24 00:21: POC Glucose 402 H* 10/18/24 06:10: POC Glucose 174 H 10/18/24 06:16: WBC 8.0, RBC 5.22, Hgb 15.1, Hct 43.6, MCV 83.5, MCH 28.9, MCHC 34.6, RDW 11.9, Plt Count 227, MPV 9.1, Neut % (Auto) 67.7, Lymph % (Auto) 21.5, [place] % (Auto) 8.3, Eos % (Auto) 1.0, Baso % (Auto) 0.6, Neut # (Auto) 5.4, Lymph # (Auto) 1.7, [place] # (Auto) 0.7, Eos # (Auto) 0.1, Baso # (Auto) 0.1, Sodium 137, Potassium 3.5, Chloride 102, Carbon Dioxide 30, Anion Gap 8.5, BUN 11, Creatinine 0.70, Estimated Creat Clear 143, Estimated GFR 115, Est GFR ( Amer) 140, Glucose 180 H D, Calcium 9.0, Magnesium 1.8, Total Bilirubin 1.1, AST 22, ALT 21, Alkaline Phosphatase 83, Total Protein 5.7 L, Albumin 3.6 D, Globulin 2.1, Albumin/Globulin Ratio 1.7 I & O for Last 24 hours: Intake & Output 10/15/24 10/16/24 10/17/24 10/18/24 23:59 23:59 23:59 23:59 Intake Total 1370 / 1370 Output Total 0 / 0 Balance 1370 / 1370 Weight 95.254 kg 88.677 kg Constitutional Constitutional: no acute distress, average body habitus and cooperative *Routine HEENT Exam Head: Present normocephalic Eye: Present EOMI ENT: Present mucous membranes moist *Routine Neck Exam Neck: Present supple and full ROM; Absent JVD *Routine Respiratory Exam Respiratory: Present CTA bilaterally, normal respiratory effort, able to speak in complete sentences and symmetric chest movement *Routine Cardiovascular Exam Cardiovascular: Present RRR; Absent murmur *Routine Abdominal Exam Abdominal: Present soft and normoactive bowel sounds; Absent tenderness or distended *Routine Rectal Exam Patient deferred: visual exam *Routine Exam Patient deferred: penile exam *Routine Extremities Exam Extremities: Present full ROM, pulses intact and normal capillary refill; Absent edema *Routine Skin Exam Skin: Present intact and dry *Routine Neurological Exam Neurological: Present alert and oriented X3 Results Data Completed and Pending Labs on day of discharge: Labs from last 24 hours 10/18/24 10/18/24 10/18/24 06:16 06:10 00:21 WBC 8.0 RBC 5.22 Hgb 15.1 Hct 43.6 MCV 83.5 MCH 28.9 MCHC 34.6 RDW 11.9 Plt Count 227 MPV 9.1 Neut % (Auto) 67.7 Lymph % (Auto) 21.5 [place] % (Auto) 8.3 Eos % (Auto) 1.0 Baso % (Auto) 0.6 Neut # (Auto) 5.4 Lymph # (Auto) 1.7 [place] # (Auto) 0.7 Eos # (Auto) 0.1 Baso # (Auto) 0.1 VBG pH VBG pCO2 VBG pO2 VBG HCO3 VBG Total CO2 VBG O2 Saturation VBG Base Excess VBG Lactic Acid Sodium 137 Potassium 3.5 Chloride 102 Carbon Dioxide 30 Anion Gap 8.5 BUN 11 Creatinine 0.70 Estimated Creat Clear 143 Estimated GFR 115 Est GFR ( Amer) 140 Glucose 180 H D POC Glucose 174 H 402 H* Calcium 9.0 Magnesium 1.8 Total Bilirubin 1.1 AST 22 ALT 21 Alkaline Phosphatase 83 Total Protein 5.7 L Albumin 3.6 D Globulin 2.1 Albumin/Globulin Ratio 1.7 HCV Ab DEANDRE w/Rflx PCR Qn HIV Ag/Ab Combo Qual 10/17/24 10/17/24 20:29 20:24 WBC 6.9 RBC 5.68 Hgb 16.5 Hct 46.8 MCV 82.4 MCH 29.0 MCHC 35.3 RDW 11.9 Plt Count 250 MPV 9.6 Neut % (Auto) 60.1 Lymph % (Auto) 30.3 [place] % (Auto) 7.2 Eos % (Auto) 1.4 Baso % (Auto) 0.9 Neut # (Auto) 4.1 Lymph # (Auto) 2.1 [place] # (Auto) 0.5 Eos # (Auto) 0.1 Baso # (Auto) 0.1 VBG pH 7.40 VBG pCO2 43.0 VBG pO2 63.8 H VBG HCO3 26.3 VBG Total CO2 27.6 H VBG O2 Saturation 92.4 H VBG Base Excess 1.5 VBG Lactic Acid 2.0 Sodium 130 L Potassium 4.0 Chloride 95 L Carbon Dioxide 28 Anion Gap 11.0 BUN 12 Creatinine 0.60 L Estimated Creat Clear 179 Estimated GFR 138 Est GFR ( Amer) 167 Glucose 660 H* POC Glucose Calcium 9.8 Magnesium 1.9 Total Bilirubin 1.1 AST 29 ALT 26 Alkaline Phosphatase 83 Total Protein 6.5 Albumin 4.3 Globulin 2.2 Albumin/Globulin Ratio 2.0 H HCV Ab DEANDRE w/Rflx PCR Qn Negative HIV Ag/Ab Combo Qual Negative DS: Diagnosis Discharge Diagnosis (1) Uncontrolled diabetes mellitus: Status: Acute (2) Hyperglycemia: Status: Acute Code(s): R73.9 - Hyperglycemia, unspecified (3) Abnormal computed tomography angiography (CTA) of neck: Status: Acute Code(s): R93.89 - Abnormal findings on diagnostic imaging of other specified body structures (4) Ulnar neuropathy: Status: Acute Code(s): G56.20 - Lesion of ulnar nerve, unspecified upper limb (5) Fibromuscular dysplasia of both carotid arteries: Status: Acute Code(s): I77.3 - Arterial fibromuscular dysplasia (6) Hyperlipidemia: Status: Acute Code(s): E78.5 - Hyperlipidemia, unspecified (7) Hypertension: Status: Acute Code(s): I10 - Essential (primary) hypertension Meds Home Medications and Allergies Home Medications ?Medication ?Instructions ?Recorded ?Confirmed ?Type lisinopril 2.5 mg tablet 2.5 mg PO DAILY 11/10/23 10/18/24 History rosuvastatin 20 mg tablet 20 mg PO DAILY 11/10/23 10/18/24 History aspirin 81 mg capsule 81 mg PO DAILY 10/18/24 10/18/24 History blood sugar diagnostic (Accu-Chek #50 ea 10/18/24 Rx Guide test strips) blood-glucose meter (Accu-Chek #1 ea 10/18/24 Rx Guide Me Glucose Meter) dapagliflozin propanediol 10 mg 10 mg PO DAILY #30 tabs 10/18/24 Rx tablet (Farxiga) insulin glargine 100 unit/mL (3 20 unit (0.2 mL) SQ DAILY 30 days 10/18/24 Rx mL) subcutaneous pen (Lantus #6 mL Solostar U-100 Insulin) lancets 23 gauge #100 ea 10/18/24 Rx metformin 1,000 mg tablet 1,000 mg PO BID #60 tabs 10/18/24 Rx pen needle, diabetic 31 gauge x #100 ea 10/18/24 Rx 1/4 (Pen Needle) New Prescriptions to Start Prescriptions: blood sugar diagnostic [Accu-Chek Guide test strips] Genet Arita blood-glucose meter [Accu-Chek Guide Me Glucose Mtr] Genet Arita dapagliflozin propanediol [Farxiga] Genet Arita insulin glargine [Lantus Solostar U-100 Insulin] Puneet Mcdaniel Kourtney metformin Genet Arita pen needle, diabetic [Pen Needle] Genet Arita Allergies Allergy/AdvReac Type Severity Reaction Status Date / Time No Known Allergies Allergy Verified 10/17/24 20:25 Discharge Plan Disposition Patient Disposition: Home, Self-Care Condition: Fair Follow up Plan Follow up with: Agustín Barr MD [Staff Physician, Medical] - 10/20/24 11:15 am Prescriptions/Medication Reconciliation: New dapagliflozin propanediol [Farxiga] 10 mg tablet 10 mg PO DAILY Qty: 30 0RF (DME) blood-glucose meter [Accu-Chek Guide Me Glucose Mtr] Misc See Rx Instructions .Route Qty: 1 0RF Rx Instructions: check bloodsugar once daily (DME) Accu-Chek Guide test strips Strip See Rx Instructions .Route Qty: 50 0RF Rx Instructions: check bloodsugar once daily (DME) lancets 23 gauge misc See Rx Instructions .Route Qty: 100 0RF Rx Instructions: check blood sugar once daily (DME) pen needle, diabetic [Pen Needle] 31 gauge x 1/4 needle See Rx Instructions .Route Qty: 100 0RF Rx Instructions: As directed metformin 1,000 mg tablet 1,000 mg PO BID Qty: 60 0RF insulin glargine [Lantus Solostar U-100 Insulin] 100 unit/mL (3 mL) insulin pen 20 unit SQ DAILY 30 Days Qty: 6 0RF Continued aspirin 81 mg Capsule 81 mg PO DAILY lisinopril 2.5 mg tablet 2.5 mg PO DAILY rosuvastatin 20 mg tablet 20 mg PO DAILY Discontinued glyburide-metformin 2.5-500 mg tablet 1 tab PO BIDWMEAL Problem Reconciliation Problems Reviewed?: Yes Patient Discharge Instructions ACTIVITY: Continue current activity DIET: diabetic diet Patient Instructions: Type 2 Diabetes, DI for Hyperglycemia -- Adult, How to Use an Insulin Pen Print Language: Chinese Providers Primary Care Provider: Provider,Referral Admit Provider: Puneet Mcdaniel Attending Provider: Puneet Mcdaniel
[2024-10-18 10:57] LABS: Hemoglobin A1C > 14.0 % (4.0-6.0)
[2024-10-18 11:23] LABS: POC Glucose,Bedside 245 (70-110)
[2024-10-18] MEDS: INSULIN GLARGINE 100 UNITS/ML 3ML FLEXPEN 20 UNIT SUBCUT (12:57)
[2024-10-18] MEDS: DAPAGLIFLOZIN PROPANEDIOL 10 MG TABLET PO (12:57)
[2024-10-18 13:20] LABS: Cholesterol 142 mg/dl (140-200); HDL Cholesterol 24 mg/dl (40-60); Triglycerides 121 mg/dl (30-150)
--- NOTE | 2024-10-19 09:54 | SW/DCPLANNER ---
Spoke with patient on the phone. Patient stated that he is doing very well. Patient stated that he is aware of his upcoming appointment. Patient stated that [facility] bring his new medicine to his room before he was discharged. Patient stated that he has no concerns or questions at this time. Mark Fraser
[2024-10-19 16:14] LABS: POC Glucose,Bedside 192 (70-110)
== END 2024-10-18 13:09 | disposition home or self-care (01) ==
LOC: ER 23:08 → 2ND 23:10
PROVIDERS: Nurse Practitioner Family; Admitting Provider Student in an Organized Health Care Education/Training Program; Emergency Provider Emergency Medicine; Visit Provider Student in an Organized Health Care Education/Training Program
DX: E11.65 Type 2 diabetes mellitus with hyperglycemia (principal); G56.22 Lesion of ulnar nerve, left upper limb; I10 Essential (primary) hypertension; I77.3 Arterial fibromuscular dysplasia; E78.5 Hyperlipidemia, unspecified; Z79.899 Other long term (current) drug therapy; Z79.4 Long term (current) use of insulin; Z79.82 Long term (current) use of aspirin; Z79.84 Long term (current) use of oral hypoglycemic drugs
CPT/HCPCS: 36415; 70450; 70496; 70498; 80053; 80061; 82803; 82962; 83036; 83735; 85025; 86803; 87389; 93005; 96374; 99285; G0378; J1650; J7120; Q9967

== ENCOUNTER 2024-11-09 07:50 | Outpatient (CLI) | payer BC, SELFPAY ==
--- OUTSIDE RECORDS SUMMARY | 2024-11-09 07:53 | XMS_ITS | Clinical Summary ---
Author Organization [facility] [employer] [facility] Address [address] [place] [address] Care Team Providers Care Tobacco Farmworker Name Role Phone Ronnell Weinberg MD Primary [...] 8:21 AM EDT) Hemoglobin A1C 12.1 % [facility] Lot Number [id number] [facility] Expiration Date 05-04-2023 [facility] Blood 08/15/2021 8:21 AM EDT Paulo Gage MD POINT OF CARE TEST ORD ERABLES Final Result [facility]
[address] [place] [address], from Last 3 Months or Most Recently Relevant to Health Maintenance Insurance [facility] PPO Care Teams Tobacco Farmworker Relationship Specialty Start Date End Date Ronnell Weinberg MD [address] [place] [address] PCP - General Family Medicine 06/07/21
--- NOTE | 2024-11-09 08:00 | CA_ITS ---
FINAL REPORT CLINICAL HISTORY: HTN COMPARISON: None FINDINGS: Limited images of the liver parenchyma demonstrate normal echogenicity. The left kidney measures 12.6 cm in length. It is normal echogenicity. There is no hydronephrosis. There is a hypodense left renal cyst identified. RI is 0.73-0.77. The renal artery/aortic ratio: 1.7. The right kidney measures 11.9 cm in length. It is normal echogenicity. There is no hydronephrosis. RI is 0.62-0.69. The renal artery/aortic ratio: 1.7. IMPRESSION: Less than 60% luminal stenosis of either kidney. Incidental note is made of a left renal cyst. CT angiogram or postcontrast MR angiogram would be more sensitive for evaluation of possible renal artery stenosis. Reviewed, Interpreted and Dictated by Emily Rodriguez MD Transcribed by Claudia Adams Authenticated and [facility]
== END 2024-11-09 23:59 | disposition home or self-care (01) ==
LOC: RT 07:50
PROVIDERS: PCP Internal Medicine; Visit Provider Internal Medicine
DX: I70.1 Atherosclerosis of renal artery (principal); N28.1 Cyst of kidney, acquired; I10 Essential (primary) hypertension; I77.3 Arterial fibromuscular dysplasia
CPT/HCPCS: 93976